=== PATIENT | female | born 1995 | race Caucasian/White ===

== ENCOUNTER 2017-08-08 16:52 | Inpatient (IN) | payer OTHER, BC ==
[2017-08-08] VITALS (20 sets, daily range): BP systolic 130–176; BP diastolic 78–98
[~2017-08-08] VITALS: Ht 165.1 cm; Wt 75.0 kg
[2017-08-08] MEDS ORDERED: L-LYSINE500 M1 PO (17:19)
[2017-08-08] MEDS ORDERED: PRENATAL TABLE1 EACH PO (17:20)
[2017-08-08 17:51] LABS: BASOPHIL (%) 0.4 % (0-1); EOSINOPHIL (%) 0.7 % (0-5); EOSINOPHIL COUNT 0.1 K/uL (0-0.3); HEMOGLOBIN 11.9 G/DL (11.9-15.5); IMMATURE GRANULOCYTE (%) 1.3 % (0.0-0.7); LYMPHOCYTE (%) 23.8 % (15-42); LYMPHOCYTE COUNT 2.7 K/uL (1.0-2.8); MCH 30.3 PG (29.0-34.0); MCV 86.5 FL (83-99); MONOCYTE (%) 6.8 % (3-12); MONOCYTE COUNT 0.8 K/uL (0-0.8); NEUTROPHIL COUNT 7.6 K/uL (1.8-6.4); PLATELET COUNT 165 K/uL (156-360); RBC DIS.WIDTH-CV 12.3 % (11.8-14.6); RBC DIS.WIDTH-SD 38.9 % (39-53); RED BLOOD COUNT 3.93 M/uL (3.80-5.20); WHITE BLOOD COUNT 11.3 K/uL (4.1-10.2)
[2017-08-08 18:08] LABS: APPEARANCE CLEAR ((CLEAR)); BILIRUBIN NEGATIVE; BLOOD NEGATIVE; COLOR STRAW ((YELLOW)); GLUCOSE (STRIP) NEGATIVE; KETONES NEGATIVE; LEUKOCYTES NEGATIVE; NITRITE NEGATIVE; PROTEIN (STRIP) 100; SPECIFIC GRAVITY 1.006 (1.000-1.030); UROBILINOGEN 0.2 MG/DL (0.2-1.0)
[2017-08-08 18:09] LABS: FIBRINOGEN 436 mg/dL (150-450); INTER. NORMALIZED RATIO 0.9
[2017-08-08 18:11] LABS: BACTERIA NONE SEEN /HPF; EPITHELIAL CELLS RARE /HPF; MUCUS NONE SEEN /LPF; RED BLOOD CELLS 0-5 /HPF (0-5); UCUL ADDED? NO; WHITE BLOOD CELLS 0-5 /HPF (0-5)
[2017-08-08 18:12] LABS: PTT 24.1 SEC (25-37)
[2017-08-08 18:13] LABS: ALBUMIN 2.9 G/DL (3.2-4.8); ALKALINE PHOSPHATASE 112 IU/L (3-129); ALT (GPT) 13 IU/L (3-49); AST (GOT) 15 IU/L (2-34); CHLORIDE 107 MEQ/L (99-109); CREATININE 0.6 MG/DL (0.6-1.3); GFR ESTIMATE (CALCULATED) > 59 mL/min/; GLUCOSE 74 mg/dL (70-99); POTASSIUM 3.9 MEQ/L (3.7-5.4); SODIUM 135 MEQ/L (136-147); TOTAL BILIRUBIN 0.2 MG/DL (0.0-1.0); TOTAL PROTEIN 5.6 G/DL (6.4-8.3); UREA NITROGEN (BUN) 12 mg/dL (9-23)
[2017-08-08 18:26] LABS: URIC ACID 5.7 mg/dL (3.1-9.2)
[2017-08-08 18:30] LABS: UR CREATININE CONCENTRATION 30.9 MG/DL
[2017-08-08 20:18] LABS: PHENCYCLIDINE NEGATIVE (25 ng/mL); THC CANNABINOIDS NEGATIVE (50 ng/mL)
[2017-08-08 20:19] LABS: AMPHETAMINE NEGATIVE (500 ng/mL); BARBITURATES NEGATIVE (200 ng/mL); BENZODIAZEPINES NEGATIVE (150 ng/mL); BUPRENORPHINE NEGATIVE (10 ng/mL); COCAINE NEGATIVE (150 ng/mL); METHADONE NEGATIVE (200 ng/mL); METHAMPHETAMINE NEGATIVE (500 ng/mL); OPIATES (MORPHINE) NEGATIVE (100 ng/mL); OXYCODONE NEGATIVE (100 ng/mL); PROPOXYPHENE NEGATIVE (300 ng/mL); TRICYCLIC ANTIDEPRESSANTS NEGATIVE (300 ng/mL)
[2017-08-08 21:57] LABS: GROUP B STREP NEGATIVE (NEGATIVE)
[2017-08-09] VITALS (24 sets, daily range): BP systolic 111–161; BP diastolic 60–96
[2017-08-09 06:32] LABS: HEMATOCRIT 34.6 % (36.0-46.0); HEMOGLOBIN 12.3 G/DL (11.9-15.5); MCH 30.8 PG (29.0-34.0); MCHC 35.5 G/DL (30.0-36.0); MCV 86.5 FL (83-99); PLATELET COUNT 154 K/uL (156-360); RBC DIS.WIDTH-CV 12.4 % (11.8-14.6); RBC DIS.WIDTH-SD 38.6 % (39-53); WHITE BLOOD COUNT 13.3 K/uL (4.1-10.2)
[2017-08-09 06:43] LABS: ALBUMIN 2.9 g/dL (3.2-4.8)
[2017-08-09 06:44] LABS: CHLORIDE 109 mEq/L (99-109); POTASSIUM 4.5 mEq/L (3.7-5.4); SODIUM 139 mEq/L (136-147)
[2017-08-09 06:46] LABS: TOTAL PROTEIN 4.9 g/dL (6.4-8.3)
[2017-08-09 06:47] LABS: GLUCOSE 118 mg/dL (70-99)
[2017-08-09 06:48] LABS: TOTAL BILIRUBIN < 0.1 mg/dL (0.0-1.0)
[2017-08-09 06:49] LABS: ALKALINE PHOSPHATASE 140 IU/L (3-129)
[2017-08-09 06:50] LABS: CREATININE 0.7 mg/dL (0.6-1.3); GFR ESTIMATE (CALCULATED) > 59 mL/min/
[2017-08-09 06:51] LABS: AST (GOT) 15 IU/L (2-34); UREA NITROGEN (BUN) 15 mg/dL (9-23)
[2017-08-09 06:52] LABS: ALT (GPT) 16 IU/L (3-49)
[2017-08-10] VITALS (20 sets, daily range): BP systolic 106–176; BP diastolic 64–98
[2017-08-10 14:39] LABS: UR CREATININE CONCENTRATION 140.1 MG/DL
[2017-08-11] VITALS (29 sets, daily range): BP systolic 137–164; BP diastolic 76–102
[2017-08-11 00:12] LABS: BASOPHIL (%) 0.2 % (0-1); EOSINOPHIL (%) 0 % (0-5); HEMATOCRIT 33.3 % (36.0-46.0); HEMOGLOBIN 11.6 G/DL (11.9-15.5); IMMATURE GRANULOCYTE (%) 3.7 % (0.0-0.7); LYMPHOCYTE (%) 14.3 % (15-42); LYMPHOCYTE COUNT 1.9 K/uL (1.0-2.8); MCH 30.6 PG (29.0-34.0); MCHC 34.8 G/DL (30.0-36.0); MCV 87.9 FL (83-99); MONOCYTE (%) 6.5 % (3-12); MONOCYTE COUNT 0.9 K/uL (0-0.8); NEUTROPHIL (%) 75.3 % (45-76); NEUTROPHIL COUNT 9.9 K/uL (1.8-6.4); PLATELET COUNT 153 K/uL (156-360); RBC DIS.WIDTH-CV 12.6 % (11.8-14.6); RBC DIS.WIDTH-SD 39.8 % (39-53); RED BLOOD COUNT 3.79 M/uL (3.80-5.20); WHITE BLOOD COUNT 13.1 K/uL (4.1-10.2)
[2017-08-11 00:23] LABS: ALBUMIN 2.7 g/dL (3.2-4.8); CHLORIDE 111 mEq/L (99-109); SODIUM 138 mEq/L (136-147)
[2017-08-11 00:25] LABS: GLUCOSE 113 mg/dL (70-99); TOTAL PROTEIN 4.7 g/dL (6.4-8.3)
[2017-08-11 00:27] LABS: TOTAL BILIRUBIN 0.1 mg/dL (0.0-1.0)
[2017-08-11 00:29] LABS: ALKALINE PHOSPHATASE 131 IU/L (3-129); CREATININE 0.6 mg/dL (0.6-1.3); GFR ESTIMATE (CALCULATED) > 59 mL/min/
[2017-08-11 00:30] LABS: UREA NITROGEN (BUN) 16 mg/dL (9-23)
[2017-08-11 00:32] LABS: ALT (GPT) 21 IU/L (3-49); AST (GOT) 23 IU/L (2-34)
[2017-08-12] VITALS (28 sets, daily range): BP systolic 124–160; BP diastolic 80–108
[2017-08-12 12:18] LABS: BASOPHIL (%) 0.3 % (0-1); EOSINOPHIL (%) 0.1 % (0-5); HEMATOCRIT 37.8 % (36.0-46.0); IMMATURE GRANULOCYTE (%) 1.2 % (0.0-0.7); LYMPHOCYTE (%) 10.5 % (15-42); LYMPHOCYTE COUNT 1.5 K/uL (1.0-2.8); MCH 30.2 PG (29.0-34.0); MCHC 34.4 G/DL (30.0-36.0); MCV 87.7 FL (83-99); MONOCYTE (%) 6.9 % (3-12); NEUTROPHIL COUNT 11.4 K/uL (1.8-6.4); PLATELET COUNT 109 K/uL (156-360); RBC DIS.WIDTH-SD 41.1 % (39-53); RED BLOOD COUNT 4.31 M/uL (3.80-5.20); WHITE BLOOD COUNT 14.1 K/uL (4.1-10.2)
[2017-08-12 13:03] LABS: ALBUMIN 2.4 G/DL (3.2-4.8); ALKALINE PHOSPHATASE 104 IU/L (3-129); CHLORIDE 105 MEQ/L (99-109); CREATININE 0.7 MG/DL (0.6-1.3); GFR ESTIMATE (CALCULATED) > 59 mL/min/; POTASSIUM 4.5 MEQ/L (3.7-5.4); SODIUM 135 MEQ/L (136-147); TOTAL PROTEIN 4.8 G/DL (6.4-8.3); UREA NITROGEN (BUN) 14 mg/dL (9-23)
[2017-08-12 13:04] LABS: ALT (GPT) 78 IU/L (3-49); AST (GOT) 68 IU/L (2-34); GLUCOSE 83 mg/dL (70-99); TOTAL BILIRUBIN 0.3 MG/DL (0.0-1.0)
[2017-08-12 13:48] LABS: MAGNESIUM 6.2 mg/dl (1.3-2.7)
[2017-08-13] VITALS (8 sets, daily range): BP systolic 128–142; BP diastolic 70–96
[2017-08-13 06:06] LABS: HEMATOCRIT 32.6 % (36.0-46.0); HEMOGLOBIN 11.1 G/DL (11.9-15.5); MCH 29.9 PG (29.0-34.0); MCV 87.9 FL (83-99); PLATELET COUNT 99 K/uL (156-360); RBC DIS.WIDTH-SD 41.6 % (39-53); RED BLOOD COUNT 3.71 M/uL (3.80-5.20); WHITE BLOOD COUNT 10.8 K/uL (4.1-10.2)
[2017-08-13 06:47] LABS: ALBUMIN 2.1 G/DL (3.2-4.8); ALKALINE PHOSPHATASE 87 IU/L (3-129); ALT (GPT) 47 IU/L (3-49); CHLORIDE 106 MEQ/L (99-109); CREATININE 0.7 MG/DL (0.6-1.3); GFR ESTIMATE (CALCULATED) > 59 mL/min/; GLUCOSE 72 mg/dL (70-99); POTASSIUM 4.3 MEQ/L (3.7-5.4); SODIUM 137 MEQ/L (136-147); TOTAL PROTEIN 4.4 G/DL (6.4-8.3); UREA NITROGEN (BUN) 15 mg/dL (9-23)
[2017-08-13 06:49] LABS: AST (GOT) 29 IU/L (2-34); TOTAL BILIRUBIN 0.2 MG/DL (0.0-1.0)
[2017-08-14 03:00] VITALS: BP 151/86
[2017-08-14 06:27] LABS: HEMATOCRIT 30.4 % (36.0-46.0); HEMOGLOBIN 10.1 G/DL (11.9-15.5); MCH 29.7 PG (29.0-34.0); MCHC 33.2 G/DL (30.0-36.0); MCV 89.4 FL (83-99); PLATELET COUNT 99 K/uL (156-360); RBC DIS.WIDTH-CV 13.1 % (11.8-14.6); RBC DIS.WIDTH-SD 42.5 % (39-53); WHITE BLOOD COUNT 9.2 K/uL (4.1-10.2)
[2017-08-14 06:56] LABS: ALBUMIN 2.4 G/DL (3.2-4.8); ALKALINE PHOSPHATASE 73 IU/L (3-129); ALT (GPT) 36 IU/L (3-49); AST (GOT) 22 IU/L (2-34); CHLORIDE 107 MEQ/L (99-109); CREATININE 0.7 MG/DL (0.6-1.3); GFR ESTIMATE (CALCULATED) > 59 mL/min/; GLUCOSE 71 mg/dL (70-99); POTASSIUM 4.5 MEQ/L (3.7-5.4); SODIUM 140 MEQ/L (136-147); TOTAL BILIRUBIN 0.2 MG/DL (0.0-1.0); TOTAL PROTEIN 4.3 G/DL (6.4-8.3); UREA NITROGEN (BUN) 17 mg/dL (9-23)
[2017-08-14 07:28] VITALS: BP 142/86
[2017-08-14] MEDS ORDERED: IBUPROFEN800 MG PO (09:16)
[2017-08-14] MEDS ORDERED: NIFEDIPINE ER30 MG PO (09:16)
[2017-08-14] MEDS ORDERED: [UNRECOGNIZED DRUG - SUPPLY] MC (09:21)
[2017-08-14 12:06] VITALS: BP 154/92
[2017-08-14 16:03] VITALS: BP 133/78
[2017-08-15 02:46] VITALS: BP 135/97
[2017-08-15 06:05] LABS: HEMOGLOBIN 11.6 G/DL (11.9-15.5); MCH 30.5 PG (29.0-34.0); MCHC 34.1 G/DL (30.0-36.0); MCV 89.5 FL (83-99); RBC DIS.WIDTH-CV 13.1 % (11.8-14.6); RBC DIS.WIDTH-SD 42.4 % (39-53); WHITE BLOOD COUNT 9.3 K/uL (4.1-10.2)
[2017-08-15 06:12] LABS: PLATELET COUNT 130 K/uL (156-360)
[2017-08-15 07:16] VITALS: BP 136/92
[2017-08-15 11:57] VITALS: BP 139/95
[2017-08-15 14:58] VITALS: BP 135/85
== END 2017-08-15 17:20 | disposition home or self-care (01) | DRG 774 ==
LOC: LDRP-OP 16:52 → 2WEST 16:54 → LDRP-OP 10-17 10:40
PROVIDERS: Advanced Practice Midwife; Obstetrics & Gynecology; Obstetrics & Gynecology Obstetrics
DX: O14.24 HELLP syndrome, complicating childbirth (principal); O60.14X0 Preterm labor third trimester with preterm delivery third trimester, not applicable or unspecified; O70.0 First degree perineal laceration during delivery; O99.354 Diseases of the nervous system complicating childbirth; G44.209 Tension-type headache, unspecified, not intractable; O99.344 Other mental disorders complicating childbirth; F41.9 Anxiety disorder, unspecified; O99.42 Diseases of the circulatory system complicating childbirth; R00.0 Tachycardia, unspecified; O99.62 Diseases of the digestive system complicating childbirth; R12 Heartburn; Z3A.35 35 weeks gestation of pregnancy; Z37.0 Single live birth
CPT/HCPCS: 76805; 76818; 80053; 81003; 81050; 82570; 83735; 84156; 84550; 85025; 85027; 85384; 85610; 85730; 86850; 86900; 86901; 87653; G0378; J0702; J3475; J7120